=== PATIENT | male | born 1960 | race Caucasian/White ===

== ENCOUNTER 2020-07-23 15:09 | Inpatient (IN) | payer OTHER ==
[2020-07-23 16:23] VITALS: BMI 28.4
[2020-07-23] MEDS ORDERED: MAG HYDROX/AL HYDROX/SIMETH 30 ML UNIT-DOSE CUP PO PRN (17:06)
[2020-07-23] MEDS ORDERED: IBUPROFEN 400 MG TABLET (FP) PO PRN (17:06)
[2020-07-23] MEDS ORDERED: BISMUTH SUBSALICYLATE 524 MG/30 ML UD PO PRN (17:06)
[2020-07-23] MEDS ORDERED: ACETAMINOPHEN 325 MG TABLET (FP) PO PRN ×2 (17:06)
[2020-07-23] MEDS ORDERED: MAGNESIUM HYDROX 2400MG/30ML ORAL SUSPENSION 30 ML CUP PO PRN (17:06)
[2020-07-23] MEDS ORDERED: ONDANSETRON *ODT* 4 MG TABLET SL PRN (17:06)
[2020-07-23] MEDS ORDERED: MAGNESIUM CITRATE 300 ML BOTTLE PO PRN (17:06)
[2020-07-23] MEDS ORDERED: METHADONE HCL 10 MG TABLET (FOR DETOX USE ONLY) PO ONE (17:28)
[2020-07-23] MEDS: cloNIDine HCL 0.1 MG TABLET PO PRN ×2 (19:13→23:37)
[2020-07-23] MEDS: hydrOXYzine PAMOATE 25 MG CAPSULE (FP) PO SCH ×2 (19:13→22:26)
[2020-07-23] MEDS: DOCUSATE SODIUM 100 MG CAPSULE (FP) PO SCH (19:13)
[2020-07-23] MEDS: MELATONIN 5 MG TABLETS PO SCH (22:26)
[2020-07-23] MEDS: THIAMINE HCL 100 MG TABLET (FP) PO SCH (22:26)
[2020-07-24] MEDS: hydrOXYzine PAMOATE 25 MG CAPSULE (FP) PO SCH ×5 (05:55→22:27)
[2020-07-24] MEDS ORDERED: METHADONE HCL 5 MG TABLET (FOR DETOX USE ONLY) ONE (09:04)
[2020-07-24] MEDS ORDERED: METHADONE HCL 10 MG TABLET (FOR DETOX USE ONLY) ONE (09:04)
[2020-07-24] MEDS ORDERED: METHADONE (DETOX) 20 MG, METHADONE (DETOX) 5 MG PO ONE (10:00)
[2020-07-24 10:12] LABS: HEMATOCRIT 35.1 % (35.4-49); MCH 29.8 pg (25.7-33.7); MCHC 34.2 g/dl (32.0-35.9); MEAN CELL VOLUME 87.3 fl (80-96); MEAN PLT VOLUME 9.6 fl (7.5-11.1); PLATELET COUNT 147 K/MM3 (134-434); RBC 4.02 M/mm3 (4.00-5.60); RDW 14.4 % (11.9-15.9); WHITE BLOOD COUNT 5.2 K/mm3 (4.0-10.0)
[2020-07-24] MEDS: DOCUSATE SODIUM 100 MG CAPSULE (FP) PO SCH (10:15)
[2020-07-24] MEDS: PRENATAL VITAMINS W/ FOLIC ACID TABLET (FP) PO SCH (10:15)
[2020-07-24 10:21] LABS: POTASSIUM 3.9 mmol/L (3.5-5.1)
[2020-07-24 10:29] LABS: ALBUMIN 3.4 g/dl (3.4-5.0); CALCIUM 8.5 mg/dL (8.5-10.1)
[2020-07-24 10:30] LABS: BLOOD UREA NITROGEN 18.9 mg/dL (7-18)
[2020-07-24 10:33] LABS: CREATININE 0.9 mg/dL (0.55-1.3)
[2020-07-24] MEDS: MELATONIN 5 MG TABLETS PO SCH (22:27)
[2020-07-24] MEDS: THIAMINE HCL 100 MG TABLET (FP) PO SCH (22:27)
[2020-07-24] MEDS: MENTHOL/PHENOL 1 EACH UD MM PRN (22:29)
[2020-07-25] MEDS: hydrOXYzine PAMOATE 25 MG CAPSULE (FP) PO SCH ×5 (06:14→22:46)
[2020-07-25] MEDS ORDERED: METHADONE HCL 10 MG TABLET (FOR DETOX USE ONLY) PO ONE (10:00)
[2020-07-25] MEDS: DOCUSATE SODIUM 100 MG CAPSULE (FP) PO SCH (10:13)
[2020-07-25] MEDS: METHOCARBAMOL 500 MG TABLET PO PRN (10:13)
[2020-07-25] MEDS: cloNIDine HCL 0.1 MG TABLET PO PRN (10:13)
[2020-07-25] MEDS: PRENATAL VITAMINS W/ FOLIC ACID TABLET (FP) PO SCH (10:13)
[2020-07-25] MEDS: MENTHOL/PHENOL 1 EACH UD MM PRN ×2 (10:15→17:17)
[2020-07-25] MEDS: MELATONIN 5 MG TABLETS PO SCH (22:46)
[2020-07-25] MEDS: THIAMINE HCL 100 MG TABLET (FP) PO SCH (22:46)
[2020-07-26] MEDS: hydrOXYzine PAMOATE 25 MG CAPSULE (FP) PO SCH ×5 (07:28→22:08)
[2020-07-26] MEDS ORDERED: METHADONE HCL 10 MG TABLET (FOR DETOX USE ONLY) ONE (09:59)
[2020-07-26] MEDS ORDERED: METHADONE (DETOX) 10 MG, METHADONE (DETOX) 5 MG PO ONE (10:00)
[2020-07-26] MEDS ORDERED: METHADONE HCL 5 MG TABLET (FOR DETOX USE ONLY) ONE (10:00)
[2020-07-26] MEDS: DOCUSATE SODIUM 100 MG CAPSULE (FP) PO SCH (10:09)
[2020-07-26] MEDS: METHOCARBAMOL 500 MG TABLET PO PRN (10:09)
[2020-07-26] MEDS: PRENATAL VITAMINS W/ FOLIC ACID TABLET (FP) PO SCH (10:10)
[2020-07-26] MEDS: MENTHOL/PHENOL 1 EACH UD MM PRN (10:11)
[2020-07-26] MEDS ORDERED: PATIENT'S OWN MEDICATION (NON-FORMULARY) (Losartan/Hydrochlorothiazide [Hyzaar 100-12.5 Ta PO SCH (13:45)
[2020-07-26] MEDS: LOSARTAN POTASSIUM 50 MG TABLET PO SCH (15:34)
[2020-07-26] MEDS: HYDROCHLOROTHIAZIDE 12.5 MG CAPSULE (FP) PO SCH (15:35)
[2020-07-26] MEDS: MELATONIN 5 MG TABLETS PO SCH (22:07)
[2020-07-26] MEDS: THIAMINE HCL 100 MG TABLET (FP) PO SCH (22:08)
[2020-07-27] MEDS: hydrOXYzine PAMOATE 25 MG CAPSULE (FP) PO SCH ×5 (05:47→22:16)
[2020-07-27] MEDS: DOCUSATE SODIUM 100 MG CAPSULE (FP) PO SCH (09:57)
[2020-07-27] MEDS: LOSARTAN POTASSIUM 50 MG TABLET PO SCH (09:57)
[2020-07-27] MEDS: HYDROCHLOROTHIAZIDE 12.5 MG CAPSULE (FP) PO SCH (09:57)
[2020-07-27] MEDS: METHOCARBAMOL 500 MG TABLET PO PRN (09:57)
[2020-07-27] MEDS: PRENATAL VITAMINS W/ FOLIC ACID TABLET (FP) PO SCH (09:58)
[2020-07-27] MEDS ORDERED: METHADONE HCL 10 MG TABLET (FOR DETOX USE ONLY) PO ONE (10:00)
[2020-07-27] MEDS: MELATONIN 5 MG TABLETS PO SCH (22:16)
[2020-07-27] MEDS: THIAMINE HCL 100 MG TABLET (FP) PO SCH (22:16)
[2020-07-28] MEDS ORDERED: METHADONE HCL 5 MG TABLET (FOR DETOX USE ONLY) PO ONE (06:00)
[2020-07-28] MEDS: hydrOXYzine PAMOATE 25 MG CAPSULE (FP) PO SCH ×2 (06:40→09:33)
[2020-07-28 09:30] VITALS: BP 168/89; PULSE 88; TEMP 98.3
[2020-07-28] MEDS: DOCUSATE SODIUM 100 MG CAPSULE (FP) PO SCH (09:31)
[2020-07-28] MEDS: LOSARTAN POTASSIUM 50 MG TABLET PO SCH (09:31)
[2020-07-28] MEDS: HYDROCHLOROTHIAZIDE 12.5 MG CAPSULE (FP) PO SCH (09:32)
[2020-07-28] MEDS: PRENATAL VITAMINS W/ FOLIC ACID TABLET (FP) PO SCH (09:32)
== END 2020-07-28 10:07 | disposition home or self-care (01) | DRG 897 ==
LOC: YASAS 15:09 → Y3N 17:29
PROVIDERS: ADMIT Allergy & Immunology; ATTEND Allergy & Immunology
PROC: HZ2ZZZZ Detoxification Services for Substance Abuse Treatment (ICD-10-PCS; principal; 2020-07-23)
DX: F11.23 Opioid dependence with withdrawal (principal); F14.10 Cocaine abuse, uncomplicated; I10 Essential (primary) hypertension; H91.91 Unspecified hearing loss, right ear; K59.00 Constipation, unspecified; M54.5 Low back pain; G89.29 Other chronic pain; R60.0 Localized edema; Z86.39 Personal history of other endocrine, nutritional and metabolic disease; Z88.0 Allergy status to penicillin
CPT/HCPCS: 36415; 71046-TC-FY; 80053; 82947; 82962; 85027; 86780; 93005; 93010; C9803; J0735; U0003; U0005